=== PATIENT | female | born 1950 | race Caucasian/White ===

== ENCOUNTER 2018-04-27 18:02 | Emergency (ER) | payer MEDICARE, MEDICAID ==
[~2018-04-27] VITALS: Ht 154.9 cm; Wt 61.0 kg
[~2018-04-27 18:02] MED LIST: LOSARTAN POT50 MG PO; LOSARTAN/HCT1 TA1 PO; NAPROSYN500 MG PO
[2018-04-27] MEDS ORDERED: PLAVIX75 MG PO (19:14)
[2018-04-27] MEDS ORDERED: ROSUVASTATIN CAL5 MG PO (19:15)
[2018-04-27] MEDS ORDERED: LOSARTAN POTASS50 MG PO (19:15)
[2018-04-27] MEDS ORDERED: ASPIRIN81 MG PO (19:16)
[2018-04-27] MEDS ORDERED: CENTRUM PO (19:16)
[2018-04-27] MEDS ORDERED: CHANTIX1 MG PO (19:16)
[2018-04-27 19:44] LABS: HEMATOCRIT 39.4 % (37.0-47.0); HEMOGLOBIN 12.9 g/dl (12.0-16.0); IMMATURE GRANULOCYTES 0.3 % (0.0-5.0); MEAN CELL VOLUME 92.1 fL CALC (80.0-100.0); MEAN CORPUSCULAR HGB 30.1 pG CALC (26.0-32.0); MEAN CORPUSCULAR HGB CONC 32.7 g/L CALC (32.0-36.0); NEUT# 4.22 thou/uL (2.00-7.15); RED BLOOD COUNT 4.28 mill/uL (4.20-5.60)
[2018-04-27 19:56] LABS: ALBUMIN 4.1 g/dL (3.2-5.0); ALKALINE PHOSPHATASE 71 u/l (38-126); AMYLASE 60 u/l (30-110); ANION GAP 13 (6-22 (CALC)); BILIRUBIN, TOTAL 0.3 mg/dL (0.0-1.4); BUN 9 mg/dL (8-23); BUN/CREATININE RATIO 12 (12-20 (CALC)); CARBON DIOXIDE 23 mmol/l (22-30); CHLORIDE 109 mmol/l (95-108); CREATININE 0.7 mg/dL (0.5-1.0); GFR > 60 ML/MIN (>=60 (CALC)); GFR FOR AFR.AMER. > 60 ML/MIN (>=60 (CALC)); LIPASE 183 u/l (23-300); POTASSIUM 4.1 mmol/l (3.5-5.1); SGOT/AST 24 u/l (9-36); SODIUM 141 mmol/l (137-146); TOTAL PROTEIN 7.4 g/dL (6.3-8.2)
[2018-04-27 20:07] LABS: MYOGLOBIN 36 ng/mL (0 - 62)
[2018-04-27 21:14] LABS: URINE BILIRUBIN - DIPSTICK NEGATIVE (NEGATIVE); URINE BLOOD DIPSTICK NEGATIVE (NEGATIVE); URINE CLARITY CLEAR; URINE COLOR YELLOW; URINE GLUCOSE - DIPSTICK NEGATIVE (NEGATIVE); URINE KETONE NEGATIVE (NEGATIVE); URINE LEUK ESTERASE SMALL (NEGATIVE); URINE NITRITE - DIPSTICK NEGATIVE (Negative); URINE PROTEIN - DIPSTICK NEGATIVE (NEG-TRACE); URINE UROBILINOGEN - DIPSTICK 0.2 E.U./dL (0.2)
[2018-04-27 21:23] LABS: URINE RBC 0-2 RBC/hpf (0-5)
[2018-04-27 21:24] LABS: URINE SQUAMOUS EPITHELIAL CELL FEW EPI/hpf (0-FEW)
[2018-04-27] MEDS ORDERED: PEPCID40 MG PO (22:11)
[2018-04-27 22:27] VITALS: BP 169/90
== END 2018-04-27 22:24 | disposition home or self-care (01) ==
LOC: ED 18:02
PROVIDERS: Family Medicine
DX: R10.13 Epigastric pain (principal); I71.4 Abdominal aortic aneurysm, without rupture; I10 Essential (primary) hypertension; Z95.820 Peripheral vascular angioplasty status with implants and grafts
CPT/HCPCS: Q9967; S0164

== ENCOUNTER 2018-07-27 11:09 | Emergency (ER) | payer MEDICARE ==
[~2018-07-27] VITALS: Ht 154.9 cm; Wt 70.0 kg
[~2018-07-27 11:09] MED LIST changes: +ASPIRIN81 MG PO; +CENTRUM PO; +CHANTIX1 MG PO; +LOSARTAN POTASS50 MG PO; +PEPCID40 MG PO; +PLAVIX75 MG PO; +ROSUVASTATIN CAL5 MG PO
[2018-07-27] MEDS ORDERED: NEXIUM40 M1 PO (11:42)
[2018-07-27 12:40] VITALS: BP 121/71
== END 2018-07-27 12:40 | disposition home or self-care (01) ==
LOC: ED 11:09
DX: S96.911A Strain of unspecified muscle and tendon at ankle and foot level, right foot, initial encounter (principal); M79.671 Pain in right foot; X58.XXXA Exposure to other specified factors, initial encounter; Y93.01 Activity, walking, marching and hiking; Y92.009 Unspecified place in unspecified non-institutional (private) residence as the place of occurrence of the external cause

== ENCOUNTER → 2018-08-14 | Outpatient (REF) | payer MEDICARE ==
[~2018-08-14] MED LIST changes: +NEXIUM40 M1 PO
[2018-08-14 10:22] LABS: HEMATOCRIT 40.4 % (37.0-47.0); HEMOGLOBIN 13.3 g/dl (12.0-16.0); MEAN CELL VOLUME 91.8 fL CALC (80.0-100.0); MEAN CORPUSCULAR HGB 30.2 pG CALC (26.0-32.0); MEAN CORPUSCULAR HGB CONC 32.9 g/L CALC (32.0-36.0); RED BLOOD COUNT 4.4 mill/uL (4.20-5.60); RED CELL DISTRI WIDTH 14.2 % (11.5-15.5)
[2018-08-14 10:40] LABS: ALBUMIN 4.2 g/dL (3.2-5.0); ALKALINE PHOSPHATASE 82 u/l (38-126); ANION GAP 16 (6-22 (CALC)); BILIRUBIN, TOTAL 0.6 mg/dL (0.0-1.4); BUN 18 mg/dL (8-23); BUN/CREATININE RATIO 22 (12-20 (CALC)); CALCULATED LDLCHOLESTEROL 59 mg/dL (62-129 (CALC)); CARBON DIOXIDE 25 mmol/l (22-30); CHLORIDE 104 mmol/l (95-108); CHOLESTEROL HDL RATIO 2.8 (<4.4 (CALC)); CREATININE 0.8 mg/dL (0.5-1.0); GFR > 60 ML/MIN (>=60 (CALC)); GFR FOR AFR.AMER. > 60 ML/MIN (>=60 (CALC)); HDL CHOLESTEROL 46 mg/dL (>=40); POTASSIUM 4.7 mmol/l (3.5-5.1); SGOT/AST 23 u/l (9-36); SODIUM 140 mmol/l (137-146); TOTAL CHOLESTEROL 128 mg/dl (0-199); TOTAL PROTEIN 7.2 g/dL (6.3-8.2); TOTAL TRIGLYCERIDES 114 mg/dl (30-149); VLDL CHOLESTROL 23 mg/dl (1-41 (CALC))
== END | disposition home or self-care (01) ==
LOC: LAB 08:50
PROVIDERS: ATTEND Internal Medicine
DX: E78.2 Mixed hyperlipidemia (principal); I10 Essential (primary) hypertension; I73.9 Peripheral vascular disease, unspecified; M48.061 Spinal stenosis, lumbar region without neurogenic claudication

== ENCOUNTER → 2018-09-05 | Outpatient (REF) | payer MEDICARE | END | disposition home or self-care (01) | LOC: ULTRASND 11:15 | PROVIDERS: ATTEND Thoracic Surgery (Cardiothoracic Vascular Surgery) | DX: I73.9 Peripheral vascular disease, unspecified (principal) ==

== ENCOUNTER 2019-03-05 22:26 | Emergency (ER) | payer MEDICARE ==
[~2019-03-05] VITALS: Ht 154.9 cm; Wt 61.4 kg
[2019-03-05] MEDS ORDERED: NAPROXEN500 MG PO (23:33)
[2019-03-06] MEDS ORDERED: DIOVAN160 MG PO (00:25)
[2019-03-06 00:27] VITALS: BP 134/75
[2019-03-06] MEDS ORDERED: LYRICA75 MG PO (00:27)
== END 2019-03-06 00:27 | disposition home or self-care (01) ==
LOC: ED 22:26
DX: M19.072 Primary osteoarthritis, left ankle and foot (principal); I10 Essential (primary) hypertension; F17.200 Nicotine dependence, unspecified, uncomplicated

== ENCOUNTER 2020-04-14 08:15 | Day surgery (SDC) | payer MEDICARE ==
[~2020-04-14] VITALS: Ht 154.9 cm; Wt 58.1 kg
[~2020-04-14 08:15] MED LIST changes: +DIOVAN160 MG PO; +LYRICA75 MG PO; +NAPROXEN500 MG PO
[2020-04-14 10:20] VITALS: BP 134/71
== END 2020-04-14 12:10 | disposition home or self-care (01) ==
LOC: ENDO 08:15 → ORM 09:00 → ENDO 09:30 → ORM 09:30 → ENDO 12:10
PROVIDERS: ATTEND Surgery
PROC: 0DJ08ZZ Inspection of Upper Intestinal Tract, Via Natural or Artificial Opening Endoscopic (ICD-10-PCS; principal; 2020-04-14)
PROC: 0DJD8ZZ Inspection of Lower Intestinal Tract, Via Natural or Artificial Opening Endoscopic (ICD-10-PCS; 2020-04-14)
DX: K31.5 Obstruction of duodenum (principal); Q43.9 Congenital malformation of intestine, unspecified; K57.30 Diverticulosis of large intestine without perforation or abscess without bleeding; K64.8 Other hemorrhoids; I10 Essential (primary) hypertension; I71.9 Aortic aneurysm of unspecified site, without rupture; F17.210 Nicotine dependence, cigarettes, uncomplicated; Z20.828 Contact with and (suspected) exposure to other viral communicable diseases
CPT/HCPCS: Q9967

== ENCOUNTER 2020-12-19 23:00 | Emergency (ER) | payer MEDICARE ==
[~2020-12-19] VITALS: Ht 154.9 cm; Wt 58.0 kg
[2020-12-19 23:45] LABS: IMMATURE GRANULOCYTES 0.3 % (0.0-5.0); MEAN CELL VOLUME 83.9 fL CALC (80.0-100.0); MEAN CORPUSCULAR HGB 25.7 pG CALC (26.0-32.0); MEAN CORPUSCULAR HGB CONC 30.6 g/dL CAL (32.0-36.0); NEUT# 6.64 thou/uL (2.00-7.15); RED BLOOD COUNT 3.97 mill/uL (4.20-5.60); RED CELL DISTRI WIDTH 15.6 % (11.5-15.5)
[2020-12-19 23:49] LABS: HEMATOCRIT 33.3 % (37.0-47.0); HEMOGLOBIN 10.2 g/dl (12.0-16.0)
[2020-12-19] MEDS ORDERED: PACERONE200 MG PO (23:53)
[2020-12-19] MEDS ORDERED: ASPIRIN ADULT L81 M2 PO (23:54)
[2020-12-19 23:55] LABS: ALBUMIN 3.7 g/dL (3.2-5.0); CREATININE 1.1 mg/dL (0.5-1.0); POTASSIUM 4.1 mmol/l (3.5-5.1); TOTAL PROTEIN 6.9 g/dL (6.3-8.2)
[2020-12-19 23:56] LABS: BILIRUBIN, TOTAL 0.1 mg/dL (0.0-1.4)
[2020-12-20 00:02] VITALS: BP 178/80
[2020-12-20 00:02] LABS: ACT PARTIAL THROMBO TIME 22.1 SECONDS (20.0-32.5); PROTHROMBIN TIME 10.4 SECONDS (9.0-12.5)
== END 2020-12-20 00:25 | disposition home or self-care (01) ==
LOC: ED 23:00
PROVIDERS: Family Medicine
PROC: 0HQ0XZZ Repair Scalp Skin, External Approach (ICD-10-PCS; principal; 2020-12-19)
DX: S01.01XA Laceration without foreign body of scalp, initial encounter (principal); S70.01XA Contusion of right hip, initial encounter; I10 Essential (primary) hypertension; I71.4 Abdominal aortic aneurysm, without rupture; F17.200 Nicotine dependence, unspecified, uncomplicated; W01.190A Fall on same level from slipping, tripping and stumbling with subsequent striking against furniture, initial encounter; Y92.009 Unspecified place in unspecified non-institutional (private) residence as the place of occurrence of the external cause; Z95.820 Peripheral vascular angioplasty status with implants and grafts

== ENCOUNTER 2021-09-17 07:40 | Day surgery (SDC) | payer MEDICARE, MEDICAID ==
[~2021-09-17] VITALS: Ht 154.9 cm; Wt 55.3 kg
[~2021-09-17 07:40] MED LIST changes: +ASPIRIN ADULT L81 M2 PO; +PACERONE200 MG PO
[2021-09-17] MEDS ORDERED: PERCOCET 5/321 COMBO PO (09:17)
[2021-09-17 10:15] VITALS: BP 144/72
[2021-09-18] MEDS ORDERED: TRAMADOL HYDROC50 M1 PO (11:37)
== END 2021-09-17 10:41 | disposition home or self-care (01) ==
LOC: ORM 07:40
PROVIDERS: ATTEND Surgery
PROC: 0FT44ZZ Resection of Gallbladder, Percutaneous Endoscopic Approach (ICD-10-PCS; principal; 2021-09-17)
DX: K80.10 Calculus of gallbladder with chronic cholecystitis without obstruction (principal); I48.91 Unspecified atrial fibrillation; I71.4 Abdominal aortic aneurysm, without rupture; F17.210 Nicotine dependence, cigarettes, uncomplicated; Z95.1 Presence of aortocoronary bypass graft
CPT/HCPCS: J0131; J1610; Q9967

== ENCOUNTER 2022-06-27 16:36 | Inpatient (IN) | payer MEDICARE, MEDICAID ==
[~2022-06-27] VITALS: Ht 154.9 cm; Wt 54.5 kg
[2022-06-27] VITALS (76 sets, daily range): BP systolic 127–214; BP diastolic 68–136
[~2022-06-27 16:36] MED LIST changes: +PERCOCET 5/321 COMBO PO; +TRAMADOL HYDROC50 M1 PO
[2022-06-27 17:13] LABS: BASO% 0.3 % (0-3); HEMATOCRIT 37.9 % (37.0-47.0); IMMATURE GRANULOCYTES 0.3 % (0.0-5.0); MEAN CELL VOLUME 83.3 fL CALC (80.0-100.0); MEAN CORPUSCULAR HGB 26.4 pG CALC (26.0-32.0); MEAN CORPUSCULAR HGB CONC 31.7 g/dL CAL (32.0-36.0); MONO% 3.9 % (2-13); NEUT# 7.83 thou/uL (2.00-7.15); NEUT% 86.5 % (42-76); RED BLOOD COUNT 4.55 mill/uL (4.20-5.60); RED CELL DISTRI WIDTH 16.9 % (11.5-15.5)
[2022-06-27 17:29] LABS: ALBUMIN 4.1 g/dL (3.2-5.0); CREATININE 1.2 mg/dL (0.5-1.0); TOTAL PROTEIN 7.5 g/dL (6.3-8.2)
[2022-06-27 17:30] LABS: BILIRUBIN, TOTAL 0.2 mg/dL (0.0-1.4)
[2022-06-28] VITALS (7 sets, daily range): BP systolic 102–129; BP diastolic 54–83
[2022-06-28 06:28] LABS: BASO% 0.1 % (0-3); HEMATOCRIT 36.7 % (37.0-47.0); HEMOGLOBIN 11.9 g/dl (12.0-16.0); IMMATURE GRANULOCYTES 0.2 % (0.0-5.0); MEAN CELL VOLUME 81.7 fL CALC (80.0-100.0); MEAN CORPUSCULAR HGB 26.5 pG CALC (26.0-32.0); MEAN CORPUSCULAR HGB CONC 32.4 g/dL CAL (32.0-36.0); NEUT# 11.04 thou/uL (2.00-7.15); NEUT% 93.7 % (42-76); RED BLOOD COUNT 4.49 mill/uL (4.20-5.60); RED CELL DISTRI WIDTH 16.9 % (11.5-15.5)
[2022-06-28 06:54] LABS: ALBUMIN 3.5 g/dL (3.2-5.0); BILIRUBIN, TOTAL 0.2 mg/dL (0.0-1.4); CREATININE 1.1 mg/dL (0.5-1.0); POTASSIUM 3.7 mmol/l (3.5-5.1); TOTAL PROTEIN 6.5 g/dL (6.3-8.2)
[2022-06-29] VITALS (8 sets, daily range): BP systolic 117–145; BP diastolic 68–83
[2022-06-29 06:38] LABS: BASO% 0.1 % (0-3); HEMATOCRIT 34.2 % (37.0-47.0); HEMOGLOBIN 11.3 g/dl (12.0-16.0); IMMATURE GRANULOCYTES 0.2 % (0.0-5.0); LYMPH% 3.8 % (15-41); MEAN CELL VOLUME 81.6 fL CALC (80.0-100.0); MONO% 2.1 % (2-13); NEUT# 12.44 thou/uL (2.00-7.15); NEUT% 93.8 % (42-76); RED BLOOD COUNT 4.19 mill/uL (4.20-5.60); RED CELL DISTRI WIDTH 16.9 % (11.5-15.5)
[2022-06-29 06:51] LABS: ALBUMIN 3.4 g/dL (3.2-5.0); CREATININE 1.1 mg/dL (0.5-1.0); MAGNESIUM 2.2 mg/dL (1.6-2.3); POTASSIUM 4.2 mmol/l (3.5-5.1); TOTAL PROTEIN 6.6 g/dL (6.3-8.2)
[2022-06-30 00:31] VITALS: BP 124/73
[2022-06-30 04:23] VITALS: BP 147/77
[2022-06-30 06:24] LABS: BASO% 0.1 % (0-3); HEMATOCRIT 32.3 % (37.0-47.0); HEMOGLOBIN 10.8 g/dl (12.0-16.0); IMMATURE GRANULOCYTES 0.3 % (0.0-5.0); LYMPH% 4.2 % (15-41); MEAN CELL VOLUME 81.8 fL CALC (80.0-100.0); MEAN CORPUSCULAR HGB 27.3 pG CALC (26.0-32.0); MEAN CORPUSCULAR HGB CONC 33.4 g/dL CAL (32.0-36.0); NEUT# 10.54 thou/uL (2.00-7.15); NEUT% 93.4 % (42-76); RED BLOOD COUNT 3.95 mill/uL (4.20-5.60)
[2022-06-30 06:40] LABS: ALBUMIN 3.5 g/dL (3.2-5.0); CREATININE 1.1 mg/dL (0.5-1.0); MAGNESIUM 2.3 mg/dL (1.6-2.3); POTASSIUM 3.8 mmol/l (3.5-5.1); TOTAL PROTEIN 6.6 g/dL (6.3-8.2)
[2022-06-30 08:22] VITALS: BP 157/77
[2022-06-30 10:54] VITALS: BP 133/74
[2022-06-30 11:28] VITALS: BP 133/74
[2022-06-30] MEDS ORDERED: ZITHROMAX250 MG PO (15:07)
[2022-06-30] MEDS ORDERED: PREDNISONE10 MG PO (15:16)
[2022-06-30 16:25] VITALS: BP 156/88
== END 2022-06-30 17:55 | disposition home or self-care (01) | DRG 871 ==
LOC: ED 16:36 → ED-I 18:52 → ED 19:33 → MS2 19:34
PROVIDERS: Family Medicine; Nurse Practitioner Family; ADMIT Internal Medicine; ATTEND Internal Medicine
DX: A41.9 Sepsis, unspecified organism (principal); J10.01 Influenza due to other identified influenza virus with the same other identified influenza virus pneumonia; J96.01 Acute respiratory failure with hypoxia; R65.20 Severe sepsis without septic shock; J43.9 Emphysema, unspecified; I10 Essential (primary) hypertension; I25.10 Atherosclerotic heart disease of native coronary artery without angina pectoris; I71.40 Abdominal aortic aneurysm, without rupture, unspecified; E78.5 Hyperlipidemia, unspecified; F17.210 Nicotine dependence, cigarettes, uncomplicated; Z95.820 Peripheral vascular angioplasty status with implants and grafts; Z95.1 Presence of aortocoronary bypass graft; Z20.822 Contact with and (suspected) exposure to COVID-19

== ENCOUNTER 2023-12-19 12:27 | Emergency (ER) | payer MEDICARE, MEDICAID ==
[2023-12-19] VITALS (17 sets, daily range): BP systolic 129–195; BP diastolic 66–112
[~2023-12-19] VITALS: Ht 154.9 cm; Wt 54.0 kg
[~2023-12-19 12:27] MED LIST changes: +HYDROCO/APAP1 TA9 PO; +PREDNISONE10 MG PO; +ZITHROMAX250 MG PO
[2023-12-19] MEDS ORDERED: ONDANSETRON HCl 4 MG/2 ML SDV IV ONE (12:40)
[2023-12-19] MEDS ORDERED: ORPHENADRINE CITRATE 30 MG/ML AMP IV ONE (12:45)
[2023-12-19] MEDS ORDERED: MORPHINE SULFATE 4 MG/ML VIAL IV ONE ×2 (12:45→16:00)
[2023-12-19 13:19] LABS: BASO% 0.8 % (0-3); EOS% 2.6 % (0-8); HEMATOCRIT 33.1 % (37.0-47.0); HEMOGLOBIN 9.9 g/dl (12.0-16.0); IMMATURE GRANULOCYTES 0.2 % (0.0-5.0); LYMPH% 14.3 % (15-41); MEAN CELL VOLUME 77.3 fL CALC (80.0-100.0); MEAN CORPUSCULAR HGB 23.1 pG CALC (26.0-32.0); MEAN CORPUSCULAR HGB CONC 29.9 g/dL CAL (32.0-36.0); MONO% 7.7 % (2-13); NEUT# 4.97 thou/uL (2.00-7.15); NEUT% 74.4 % (42-76); RED BLOOD COUNT 4.28 mill/uL (4.20-5.60)
[2023-12-19 13:33] LABS: ALBUMIN 4.2 g/dL (3.2-5.0); BILIRUBIN, TOTAL 0.5 mg/dL (0.02-1.3); CREATININE 1.3 mg/dL (0.5-1.0); POTASSIUM 4.4 mmol/l (3.5-5.1); TOTAL PROTEIN 7.4 g/dL (6.3-8.2)
[2023-12-19] MEDS ORDERED: SODIUM CHLORIDE 0.9% 1,000 ML IV ONE (13:40)
[2023-12-19] MEDS ORDERED: hydrALAZINE HCL 20 MG/ML VIAL(1 ML) IV ONE (15:35)
[2023-12-19] MEDS ORDERED: MEDDOSEPAK PO (16:20)
[2023-12-19] MEDS ORDERED: METHOCARBAMOL500 MG PO (16:20)
[2023-12-19] MEDS ORDERED: NORVASC5 M1 PO (16:45)
== END 2023-12-19 17:19 | disposition home or self-care (01) ==
LOC: ED 12:27
PROVIDERS: Nurse Practitioner
DX: M54.6 Pain in thoracic spine (principal); I71.43 Infrarenal abdominal aortic aneurysm, without rupture; I10 Essential (primary) hypertension; I25.10 Atherosclerotic heart disease of native coronary artery without angina pectoris; J44.9 Chronic obstructive pulmonary disease, unspecified; F17.210 Nicotine dependence, cigarettes, uncomplicated
CPT/HCPCS: Q9967